=== PATIENT | female | born 1975 | race Hispanic/Latino ===

== ENCOUNTER 2021-04-18 18:45 | Emergency (ER) | payer SELFPAY ==
[2021-04-18 20:42] VITALS: BP 118/70
--- NOTE | 2021-04-18 20:53 | Emergency Department Report ---
ED General Adult HPI - General Chief complaint: Dyspnea/Respdistress Stated complaint: URBANO, LIGHTHEADED Time Seen by Provider: 04/18/21 20:47 Source: patient Mode of arrival: Ambulatory Limitations: No Limitations - History of Present Illness Initial comments: 46-year-old female patient with history of asthma presents to the emergency department with complaints of productive cough for 1 week. States she has been using her Flovent and nebulizer medications with limited relief. Patient has not taken steroids in approximately 6 months. No current antibiotic use. Patient does not currently have a primary care provider. States her symptoms are consistent with prior asthma exacerbations. Denies fever, chills, chest pain, palpitations, syncope, vomiting, hemoptysis. Denies all other complaints at this time. - Related Data Previous Rx's Medication Instructions Recorded Last Taken Type Benzonatate [Tessalon Perles] 200 mg PO Q8HR #30 capsule 04/18/21 Unknown Rx predniSONE [Deltasone] 20 mg PO QDAY #7 tab 04/18/21 Unknown Rx Allergies Allergy/AdvReac Type Severity Reaction Status Date / Time clindamycin Allergy Hives Verified 04/18/21 18:53 Penicillins Allergy Anaphylaxis Verified 04/18/21 18:53 ED Review of Systems ROS: Stated complaint: URBANO, LIGHTHEADED Other details as noted in HPI Other: GENERAL: Negative for fever, chills, weight change, anorexia, fatigue. ENT: Negative for ear pain, difficulty hearing, sore throat, nasal congestion, epistaxis. CARDIOVASCULAR: Negative for chest pain, palpitations, lower extremity swelling. PULMONARY: Positive for cough. GASTROINTESTINAL: Negative for abdominal pain, nausea, vomiting, diarrhea, constipation. MUSCULOSKELETAL: Negative for joint pain, joint swelling, myalgias, back pain, neck pain. NEUROLOGICAL: Negative for headache, seizure, syncope, paresthesias, weakness. INTEGUMENTARY: Negative for erythema, rash, diaphoresis, laceration, ecchymosis. HEMATOLOGICAL: Negative for hemoptysis, hematemesis, hematochezia, hematuria. PSYCHIATRIC: Negative for hallucinations, suicidal ideation, homicidal ideation, anxiety, depression. ED Past Medical Hx - Past Medical History Previous Medical History?: Yes Hx Asthma: Yes - Surgical History Past Surgical History?: Yes Additional Surgical History: TL - Medications Home Medications: Home Medications Medication Instructions Recorded Confirmed Last Taken Type Benzonatate [Tessalon Perles] 200 mg PO Q8HR #30 capsule 04/18/21 Unknown Rx predniSONE [Deltasone] 20 mg PO QDAY #7 tab 04/18/21 Unknown Rx ED Physical Exam - General Limitations: No Limitations - Other Other exam information: General: Awake and alert. No acute distress. Head: Atraumatic, normocephalic. Eyes: EOMI. Pupils are equal and round. Normal sclera and conjunctiva. ENT: Oral mucosa is moist. Normal pharyngeal exam. Neck: Supple. No lymphadenopathy. Pulmonary: Intermittent cough noted. No respiratory distress. Clear to auscultation bilaterally. Cardiac: Tachycardic. Pulses are palpable and equal bilaterally. No lower extremity cyanosis or edema. Skin: Warm and dry. No rashes. Abdomen: Soft, non-tender, non-protuberant. No guarding, rigidity, or rebound. Bowel sounds are normal. No organomegaly or masses noted. Back: Normal alignment. No CVA tenderness. Extremities: Symmetrical. Full range of motion intact. Neurological: Alert and oriented, appropriately interactive, no focal deficits. Psych: Cooperative. Appropriate mood and affect. Speech is evenly metered. T houghts are logically construed. ED Course Vital Signs 04/18/21 18:52 Temperature 98.4 F Pulse Rate 107 H Respiratory 20 Rate Blood Pressure 118/70 O2 Sat by Pulse 98 Oximetry ED Medical Decision Making - Medical Decision Making Differential diagnosis including but not limited to: asthma exacerbation, influenza, pneumonia, pleural effusion, pertussis, viral upper respiratory infection Patient presents to the emergency department with complaints of cough for 1 wee k. She is afebrile. No hypoxia, no respiratory distress. Mild tachycardia attributable to use of beta agonist prior to arrival. States her current symptoms are consistent with prior asthma exacerbations. No clinical evidence to suggest respiratory compromise or concomitant bacterial infection warranting further diagnostic work-up on an emergent basis at this time. Patient will be discharged home with short course of steroids, antitussives, and referral to primary care provider for close outpatient follow-up. Patient expressed understanding and is agreeable to plan of care. Smoking cessation advised. Strict return precautions provided. Repeat exam is unremarkable and benign. History, exam, diagnostic testing, and current condition do not suggest worrisome pathology to warrant further testing, continued ED treatment, admission, or surgical evaluation at this point. Given the low probability of a significant medical illness, it would be more likely to result in harm than benefit to perform further testing at this stage. Discussed findings, presumptive diagnosis, need for follow-up and specific signs/symptoms that should prompt immediate return to the emergency department. Instructions were explained in detail to the patient in addition to giving written discharge information. Patient expressed understanding and was given the opportunity to ask questions, all of which were satisfactorily answered prior to discharge home. Critical care attestation.: If time is entered above; I have spent that time in minutes in the direct care of this critically ill patient, excluding procedure time. ED Disposition Clinical Impression: Cough, History of asthma Disposition: DC- TO HOME OR SELFCARE Is pt being admited?: No Does the pt Need Aspirin: No Condition: Stable Instructions: Asthma, Adult, Pisc-in-Fqgg Additional Instructions: Take Prednisone with food as directed. Take Tessalon as directed for cough. Honey is an excellent natural cough suppressant. Please quit smoking. Rest. Drink plenty of fluids. Follow-up with primary care provider this week. Call tomorrow to schedule an appointment. See referral information below. Return to the emergency department immediately for new or worsening symptoms. Specifically, return to the emergency department immediately for fever, chest pain, difficulty breathing, wheezing, loss of consciousness, or any other concerns. Prescriptions: predniSONE [Deltasone] 20 mg PO QDAY #7 tab Benzonatate [Tessalon Perles] 200 mg PO Q8HR #30 capsule Referrals: ANDREW BROWN MD [Staff Physician] - 3-5 Days [facility] [Outside] - 3-5 Days [facility] [Outside] - 3-5 Days [facility] [Outside] - 3-5 Days [facility] [Provider Group] - 3-5 Days Time of Disposition: 20:55
--- NOTE | 2021-04-21 19:14 | Electrocardiograph Report ---
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
== END 2021-04-18 21:00 | disposition home or self-care (01) ==
LOC: ED 18:45
DX: R05 Cough (principal); J45.909 Unspecified asthma, uncomplicated; Z98.890 Other specified postprocedural states; Z88.1 Allergy status to other antibiotic agents; Z88.0 Allergy status to penicillin; Z79.899 Other long term (current) drug therapy
CPT/HCPCS: 93005; 99282